=== PATIENT | male | born 1950 | race Caucasian/White ===

== ENCOUNTER 2022-05-24 13:24 | Outpatient (REF) | payer MEDICARE, SELFPAY ==
--- NOTE | ~2022-05-24 | MR_ITS ---
EXAMINATION: MR BRAIN WITHOUT CONTRAST CLINICAL INFORMATION: Encephalopathy. COMPARISON: None TECHNIQUE: Multiplanar, multisequence imaging of the brain was performed without contrast. FINDINGS: No diffusion abnormalities are identified to suggest an acute infarct. [id number] diffuse parenchymal volume loss evident with ex vacuo dilatation of the ventricles. No mass effect or midline shift is seen. There are extensive confluent areas of T2 hyperintense signal abnormality in the cerebral white matter of both hemispheres and in the theodore. No extra-axial fluid collections are seen. The cerebellum is normal. The gradient refocused acquisition is normal. The craniovertebral junction, marrow signal, and midline structures are normal. The major intracranial flow voids at the level of the [place] of [place] are preserved. The dural venous sinus flow voids are maintained. Mild ethmoid sinus mucosal thickening noted. [id number] bilateral mastoid effusions present. The nasopharyngeal soft tissues appear normal. MR/MR head/brain wo con IMPRESSION: Extensive white matter signal changes in both cerebral hemispheres and in the theodore which are nonspecific but may be due to severe chronic ischemic microangiopathy. Diffuse parenchymal volume loss as well with ex vacuo dilatation of the ventricles.
== END 2022-05-24 13:25 | disposition home or self-care (01) ==
LOC: HO.MRI 13:24
PROVIDERS: Visit Provider Psychiatry & Neurology Neurology
DX: G93.40 Encephalopathy, unspecified (principal)
CPT/HCPCS: 70551